=== PATIENT | male | born 1955 | race Caucasian/White ===

== ENCOUNTER → 2019-01-03 | Outpatient (CLI) | payer MEDICARE | LOC: LAB 12:47 | DX: R07.9 Chest pain, unspecified (principal) ==

== ENCOUNTER → 2019-01-06 | Outpatient (CLI) | payer MEDICARE | LOC: VAS 14:57 → CARDREHAB 14:57 → RAD 16:00 → VAS 16:00 | DX: R07.9 Chest pain, unspecified (principal); J44.9 Chronic obstructive pulmonary disease, unspecified; I10 Essential (primary) hypertension; F17.200 Nicotine dependence, unspecified, uncomplicated ==

== ENCOUNTER → 2019-02-22 | Outpatient (CLI) | payer MEDICARE ==
[2019-02-22 12:21] LABS: BASO # 0.1 (0.02-0.10); EOS # 0.2 (0.04-0.40); EOS % 3.3 % (0.0-4.0); HEMATOCRIT 47.2 % (42.0-52.0); LYMPH# 1.6 (1.50-4.00); MEAN CELL VOLUME 92 fl (78-100); MEAN CORPUSCULAR HEMOGLOBIN 31 pg (27-31); MEAN CORPUSCULAR HGB CONC 34 g/dL (33-37); MONO # 0.6 (0.20-0.80); PLATELET COUNT 164 K/mm3 (130-400); RED BLOOD COUNT 5.13 M/mm3 (4.20-5.60); RED CELL DISTRIBUTION WIDTH 12.7 % (11.5-14.5); WHITE BLOOD COUNT 5.5 K/mm3 (4.8-10.8)
[2019-02-22 12:30] LABS: ALBUMIN 4.5 g/dL (3.5-5.0); ALCOHOL IN-HOUSE < 10 mg/dL; ALT/SGPT 34 U/L (21-72); AST-SGOT 31 U/L (17-59); CALCIUM 9.5 mg/dL (8.4-10.2); CARBON DIOXIDE 28 mmol/L (22-30); GLUCOSE 106 mg/dL (75-110); LIPASE 111 U/L (23-300); POTASSIUM 4.4 mmol/L (3.6-5.0); SODIUM 133 mmol/L (137-145); TOTAL BILIRUBIN 0.9 mg/dL (0.2-1.3)
[2019-02-22 12:52] LABS: URINE APPEARANCE CLEAR; URINE BILIRUBIN NEGATIVE (NEGATIVE); URINE BLOOD NEGATIVE (NEGATIVE); URINE COLOR YELLOW; URINE GLUCOSE NEGATIVE (NEGATIVE); URINE KETONE NEGATIVE (NEGATIVE); URINE LEUKOCYTE ESTERASE 1+ (NEGATIVE); URINE NITRATE NEGATIVE (NEGATIVE); URINE PROTEIN(semi-quant) NEGATIVE (NEGATIVE); URINE UROBILINOGEN NORMAL (NORMAL)
== END ==
LOC: LAB 11:56
PROVIDERS: Nurse Practitioner Family
DX: J43.9 Emphysema, unspecified (principal); F10.239 Alcohol dependence with withdrawal, unspecified; R20.0 Anesthesia of skin; R07.9 Chest pain, unspecified; J98.4 Other disorders of lung; D73.89 Other diseases of spleen; I89.8 Other specified noninfective disorders of lymphatic vessels and lymph nodes
CPT/HCPCS: Q9967

== ENCOUNTER → 2020-01-05 | Outpatient (CLI) | payer MEDICARE | LOC: VAS 15:03 → RAD 15:15 | DX: I08.2 Rheumatic disorders of both aortic and tricuspid valves (principal); I77.810 Thoracic aortic ectasia ==

== ENCOUNTER 2020-07-31 09:00 | Outpatient (RCR) | payer MEDICARE | END 2020-07-31 09:30 | disposition still patient (30) | LOC: PT 09:00 | DX: M48.02 Spinal stenosis, cervical region (principal); M40.202 Unspecified kyphosis, cervical region; M47.812 Spondylosis without myelopathy or radiculopathy, cervical region ==

== ENCOUNTER 2020-12-13 07:38 | Emergency (ER) | payer MEDICARE ==
[2020-12-13] MEDS ORDERED: NORVASC 10MG10 MG PO (08:03)
[2020-12-13] MEDS ORDERED: LISINOPRIL40 MG PO (08:03)
[2020-12-13 08:18] LABS: BASO # 0.1 (0.02-0.10); EOS # 0.2 (0.04-0.40); EOS % 2.8 % (0.0-4.0); HEMATOCRIT 41.9 % (42.0-52.0); HEMOGLOBIN 13.7 g/dL (13.5-18.0); LYMPH# 1.7 (1.50-4.00); MEAN CELL VOLUME 94 fl (78-100); MEAN CORPUSCULAR HEMOGLOBIN 31 pg (27-31); MEAN CORPUSCULAR HGB CONC 33 g/dL (33-37); MEAN PLATELET VOLUME 9.4 fl (7.4-10.4); MONO # 0.5 (0.20-0.80); NEU # 4.6 (1.40-6.50); PLATELET COUNT 210 K/mm3 (130-400); RED BLOOD COUNT 4.44 M/mm3 (4.20-5.60); RED CELL DISTRIBUTION WIDTH 12.9 % (11.5-14.5)
[2020-12-13 08:32] LABS: POTASSIUM 4.9 mmol/L (3.5-5.1); SODIUM 136 mmol/L (136-145)
[2020-12-13 08:33] LABS: CALCIUM 8.8 mg/dL (8.3-10.5)
[2020-12-13 08:34] LABS: GLUCOSE 219 mg/dL (75-110); TOTAL PROTEIN 6.5 g/dL (6.2-8.1)
[2020-12-13 08:35] LABS: CARBON DIOXIDE 22 mmol/L (23-31)
[2020-12-13 08:36] LABS: TOTAL BILIRUBIN 0.3 mg/dL (0.2-1.2)
[2020-12-13 08:39] LABS: AST-SGOT 13 U/L (5-34)
[2020-12-13 08:40] LABS: ALT/SGPT 12 U/L (0-55)
[2020-12-13 09:05] LABS: TROPONIN-I < 0.03 ng/mL (<0.030)
[2020-12-13 12:43] VITALS: BP 127/89
== END 2020-12-13 11:43 | disposition home or self-care (01) ==
LOC: ED 07:38
PROVIDERS: Nurse Practitioner Primary Care
DX: R07.89 Other chest pain (principal); I10 Essential (primary) hypertension; Z87.891 Personal history of nicotine dependence

== ENCOUNTER → 2021-08-20 | Outpatient (CLI) | payer MEDICARE ==
[~2021-08-20] MED LIST: ASPIRIN E.C. 8181 MG; LISINOPRIL40 MG PO; NORVASC 10MG10 MG PO; TOPCARE PAIN R325 MG PO
== END ==
LOC: RAD 08:45
DX: Z13.6 Encounter for screening for cardiovascular disorders (principal); Z87.891 Personal history of nicotine dependence

== ENCOUNTER 2021-08-31 14:33 | Emergency (ER) | payer MEDICARE ==
[~2021-08-31] VITALS: Ht 182.9 cm; Wt 82.4 kg
[~2021-08-31 14:33] MED LIST changes: -ASPIRIN E.C. 8181 MG; -TOPCARE PAIN R325 MG PO
[2021-08-31] MEDS ORDERED: ASPIRIN E.C. 8181 MG (14:42)
[2021-08-31] MEDS ORDERED: TOPCARE PAIN R325 MG PO (14:43)
[2021-08-31 16:03] LABS: HEMATOCRIT 39.7 % (42.0-52.0); HEMOGLOBIN 13.2 g/dL (13.5-18.0); MEAN CELL VOLUME 93 fl (78-100); MEAN CORPUSCULAR HEMOGLOBIN 31 pg (27-31); MEAN CORPUSCULAR HGB CONC 33 g/dL (33-37); MEAN PLATELET VOLUME 8.5 fl (7.4-10.4); PLATELET COUNT 215 K/mm3 (130-400); RED BLOOD COUNT 4.29 M/mm3 (4.20-5.60); RED CELL DISTRIBUTION WIDTH 13.1 % (11.5-14.5); WHITE BLOOD COUNT 6.1 K/mm3 (4.8-10.8)
[2021-08-31 16:10] LABS: URINE APPEARANCE CLEAR; URINE BILIRUBIN NEGATIVE (NEGATIVE); URINE BLOOD NEGATIVE (NEGATIVE); URINE COLOR YELLOW; URINE GLUCOSE NEGATIVE (NEGATIVE); URINE KETONE NEGATIVE (NEGATIVE); URINE LEUKOCYTE ESTERASE NEGATIVE (NEGATIVE); URINE NITRATE NEGATIVE (NEGATIVE); URINE PROTEIN(semi-quant) TRACE mg/dL (NEGATIVE); URINE UROBILINOGEN NORMAL (NORMAL); URINE WBC 0-1 /hpf (0-3)
[2021-08-31 16:14] LABS: POTASSIUM 3.7 mmol/L (3.5-5.1)
[2021-08-31 16:15] LABS: BAND 0 % (0-10); CALCIUM 9.2 mg/dL (8.3-10.5)
[2021-08-31 16:16] LABS: LYMPHOCYTE 35 % (20-51); MONOCYTE 10 % (3-10); NEUTROPHILS 47 % (42-75); TOTAL PROTEIN 6.7 g/dL (6.2-8.1)
[2021-08-31 16:18] LABS: TOTAL BILIRUBIN 0.5 mg/dL (0.2-1.2)
[2021-08-31 17:34] VITALS: BP 124/86
== END 2021-08-31 17:40 | disposition home or self-care (01) ==
LOC: ED 14:33
PROVIDERS: Family Medicine
DX: E87.1 Hypo-osmolality and hyponatremia (principal); R10.32 Left lower quadrant pain; I10 Essential (primary) hypertension; F17.210 Nicotine dependence, cigarettes, uncomplicated; Z79.899 Other long term (current) drug therapy

== ENCOUNTER → 2021-11-14 | Outpatient (CLI) | payer MEDICARE ==
[~2021-11-14] MED LIST changes: +ASPIRIN E.C. 8181 MG; +TOPCARE PAIN R325 MG PO
== END ==
LOC: LAB 10:58
DX: R97.20 Elevated prostate specific antigen [PSA] (principal)

== ENCOUNTER 2022-02-03 10:09 | Emergency (ER) | payer MEDICARE ==
[~2022-02-03] VITALS: Ht 182.9 cm; Wt 82.2 kg
[2022-02-03 11:15] LABS: BASO # 0.04 K/mm3 (0.02-0.10); EOS # 0.31 K/mm3 (0.04-0.40); EOS % 5.2 % (0.0-4.0); HEMOGLOBIN 14.2 g/dL (13.5-18.0); MEAN CELL VOLUME 92 fl (78-100); MEAN CORPUSCULAR HEMOGLOBIN 31 pg (27-31); MEAN CORPUSCULAR HGB CONC 34 g/dL (33-37); MEAN PLATELET VOLUME 8.7 fl (7.4-10.4); MONO # 0.57 K/mm3 (0.20-0.80); NEU # 3.13 K/mm3 (1.40-6.50); PLATELET COUNT 201 K/mm3 (130-400); RED BLOOD COUNT 4.58 M/mm3 (4.20-5.60)
[2022-02-03 11:18] LABS: ALBUMIN 4.2 g/dL (3.4-4.8)
[2022-02-03 11:19] LABS: POTASSIUM 4.3 mmol/L (3.5-5.1); SODIUM 135 mmol/L (136-145)
[2022-02-03 11:20] LABS: CALCIUM 9.4 mg/dL (8.3-10.5)
[2022-02-03 11:21] LABS: GLUCOSE 109 mg/dL (75-110); TOTAL PROTEIN 6.9 g/dL (6.2-8.1)
[2022-02-03 11:22] LABS: CARBON DIOXIDE 24 mmol/L (23-31)
[2022-02-03 11:23] LABS: TOTAL BILIRUBIN 0.6 mg/dL (0.2-1.2)
[2022-02-03 11:26] LABS: AST-SGOT 17 U/L (5-34)
[2022-02-03 11:27] LABS: ALT/SGPT 11 U/L (0-55)
[2022-02-03 11:38] LABS: TROPONIN-I < 0.030 ng/mL (<0.030)
[2022-02-03] MEDS ORDERED: PREDNISONE20 M1 PO (12:03)
[2022-02-03 12:08] VITALS: BP 111/87
== END 2022-02-03 12:08 | disposition home or self-care (01) ==
LOC: ED 10:09
PROVIDERS: Nurse Practitioner
DX: E87.1 Hypo-osmolality and hyponatremia (principal); R07.81 Pleurodynia; R10.32 Left lower quadrant pain

== ENCOUNTER → 2022-02-25 | Outpatient (CLI) | payer MEDICARE ==
[~2022-02-25] MED LIST changes: +FLONASE ALLERG9.9 ML NS; +MECLIZINE PO; +PREDNISONE20 M1 PO
== END ==
LOC: VAS 09:55 → RAD 10:00
DX: I77.810 Thoracic aortic ectasia (principal)

== ENCOUNTER 2022-03-12 05:15 | Emergency (ER) | payer MEDICARE ==
[~2022-03-12] VITALS: Ht 182.9 cm; Wt 78.6 kg
[~2022-03-12 05:15] MED LIST changes: -FLONASE ALLERG9.9 ML NS; -MECLIZINE PO
[2022-03-12] MEDS ORDERED: FLONASE ALLERG9.9 ML NS (05:28)
[2022-03-12 06:27] LABS: BASO # 0.04 K/mm3 (0.02-0.10); EOS # 0.36 K/mm3 (0.04-0.40); EOS % 6.4 % (0.0-4.0); HEMATOCRIT 40.9 % (42.0-52.0); HEMOGLOBIN 13.8 g/dL (13.5-18.0); LYMPH# 2.26 K/mm3 (1.50-4.00); MEAN CELL VOLUME 91 fl (78-100); MEAN CORPUSCULAR HEMOGLOBIN 31 pg (27-31); MEAN CORPUSCULAR HGB CONC 34 g/dL (33-37); MEAN PLATELET VOLUME 8.9 fl (7.4-10.4); MONO # 0.61 K/mm3 (0.20-0.80); NEU # 2.32 K/mm3 (1.40-6.50); PLATELET COUNT 227 K/mm3 (130-400); RED BLOOD COUNT 4.48 M/mm3 (4.20-5.60); RED CELL DISTRIBUTION WIDTH 12.9 % (11.5-14.5); WHITE BLOOD COUNT 5.6 K/mm3 (4.8-10.8)
[2022-03-12 06:29] LABS: ALBUMIN 4.1 g/dL (3.4-4.8); POTASSIUM 4.1 mmol/L (3.5-5.1)
[2022-03-12 06:31] LABS: CALCIUM 8.9 mg/dL (8.3-10.5)
[2022-03-12 06:32] LABS: TOTAL PROTEIN 6.7 g/dL (6.2-8.1)
[2022-03-12 06:34] LABS: TOTAL BILIRUBIN 0.4 mg/dL (0.2-1.2)
[2022-03-12] MEDS ORDERED: MECLIZINE PO (08:00)
[2022-03-12 09:12] VITALS: BP 110/85
== END 2022-03-12 08:25 | disposition home or self-care (01) ==
LOC: ED 05:15
PROVIDERS: Family Medicine
DX: E86.0 Dehydration (principal); F17.210 Nicotine dependence, cigarettes, uncomplicated
CPT/HCPCS: J7030

== ENCOUNTER → 2022-08-26 | Outpatient (CLI) | payer MEDICARE ==
[~2022-08-26] MED LIST changes: +FLONASE ALLERG9.9 ML NS; +MECLIZINE PO
== END ==
LOC: RAD 08:36
DX: K76.9 Liver disease, unspecified (principal)
CPT/HCPCS: Q9967

== ENCOUNTER → 2022-09-03 | Outpatient (CLI) | payer MEDICARE | LOC: RAD 10:44 | DX: I77.810 Thoracic aortic ectasia (principal) ==

== ENCOUNTER 2024-07-25 09:34 | Emergency (ER) | payer MEDICARE ==
[~2024-07-25] VITALS: Ht 182.9 cm; Wt 86.4 kg
[~2024-07-25 09:34] MED LIST changes: +FLOMAX0.4 MG PO; +LUPRON DEPOT IM; +ZYRTEC10 M3 PO
[2024-07-25] MEDS ORDERED: ZESTRIL20 M1 PO (09:58)
[2024-07-25] MEDS ORDERED: ZOLOFT 50MG50 MG PO (09:59)
[2024-07-25] MEDS ORDERED: CALCIUM 600 MG-1 TAB PO (09:59)
[2024-07-25] MEDS ORDERED: ADULT ASPIRIN R81 MG PO (10:00)
[2024-07-25 10:18] LABS: BASO # 0.02 K/mm3 (0.02-0.10); EOS # 0.11 K/mm3 (0.04-0.40); HEMATOCRIT 44.4 % (42.0-52.0); HEMOGLOBIN 14.6 g/dL (13.5-18.0); LYMPH# 1.58 K/mm3 (1.50-4.00); MEAN CELL VOLUME 92 fl (78-100); MEAN CORPUSCULAR HEMOGLOBIN 30 pg (27-31); MEAN CORPUSCULAR HGB CONC 33 g/dL (33-37); MEAN PLATELET VOLUME 8.9 fl (7.4-10.4); MONO # 0.51 K/mm3 (0.20-0.80); NEU # 3.24 K/mm3 (1.40-6.50); PLATELET COUNT 192 K/mm3 (130-400); RED BLOOD COUNT 4.82 M/mm3 (4.20-5.60); RED CELL DISTRIBUTION WIDTH 14.1 % (11.5-14.5); WHITE BLOOD COUNT 5.5 K/mm3 (4.8-10.8)
[2024-07-25 10:22] VITALS: BP 123/60
[2024-07-25 10:31] LABS: ALBUMIN 4.4 g/dL (3.4-4.8)
[2024-07-25 10:32] LABS: CALCIUM 9.6 mg/dL (8.3-10.5)
[2024-07-25 10:34] LABS: TOTAL PROTEIN 7.1 g/dL (6.2-8.1)
[2024-07-25 10:35] LABS: TOTAL BILIRUBIN 0.5 mg/dL (0.2-1.2)
[2024-07-25 10:47] LABS: URINE APPEARANCE CLEAR (CLEAR); URINE COLOR YELLOW (YELLOW)
[2024-07-25 10:52] LABS: URINE BILIRUBIN NEGATIVE (NEGATIVE); URINE BLOOD NEGATIVE (NEGATIVE); URINE GLUCOSE NEGATIVE (NEGATIVE); URINE KETONE NEGATIVE (NEGATIVE); URINE LEUKOCYTE ESTERASE NEGATIVE (NEGATIVE); URINE NITRATE NEGATIVE (NEGATIVE); URINE PROTEIN(semi-quant) NEGATIVE (NEGATIVE); URINE WBC 0-1 /hpf (0-3)
== END 2024-07-25 10:30 | disposition home or self-care (01) ==
LOC: ED 09:34
PROVIDERS: Physician Assistant
DX: N50.811 Right testicular pain (principal)

== ENCOUNTER → 2024-12-05 | Day surgery (SDC) | payer MEDICARE ==
[~2024-12-05] MED LIST changes: +ADULT ASPIRIN R81 MG PO; +CALCIUM 600 MG-1 TAB PO; +TAPAZOLE 5MG TAB5 MG PO; +ZESTRIL20 M1 PO; +ZOLOFT 50MG50 MG PO; +fentaNYL 100 MCG/2 ML VIAL ONE
== END | disposition home or self-care (01) ==
LOC: MSO 11-07 08:36
DX: K92.1 Melena (principal); K64.0 First degree hemorrhoids
CPT/HCPCS: 00811; J2704; J3010; J7120

== ENCOUNTER 2025-01-31 12:48 | Emergency (ER) | payer MEDICARE ==
[~2025-01-31] VITALS: Ht 180.3 cm; Wt 84.9 kg
[~2025-01-31 12:48] MED LIST changes: -fentaNYL 100 MCG/2 ML VIAL ONE
[2025-01-31 13:20] LABS: BASO # 0.03 K/mm3 (0.02-0.10); EOS # 0.24 K/mm3 (0.04-0.40); HEMOGLOBIN 14.4 g/dL (13.5-18.0); LYMPH# 2.06 K/mm3 (1.50-4.00); MEAN CELL VOLUME 94 fl (78-100); MEAN CORPUSCULAR HEMOGLOBIN 31 pg (27-31); MEAN CORPUSCULAR HGB CONC 33 g/dL (33-37); MEAN PLATELET VOLUME 9.2 fl (7.4-10.4); MONO # 0.57 K/mm3 (0.20-0.80); NEU # 3.12 K/mm3 (1.40-6.50); PLATELET COUNT 192 K/mm3 (130-400); RED BLOOD COUNT 4.69 M/mm3 (4.20-5.60); RED CELL DISTRIBUTION WIDTH 13.4 % (11.5-14.5)
[2025-01-31 13:23] LABS: ALBUMIN 4.3 g/dL (3.4-4.8); SODIUM 135 mmol/L (136-145)
[2025-01-31 13:25] LABS: CALCIUM 9.9 mg/dL (8.3-10.5)
[2025-01-31 13:26] LABS: GLUCOSE 97 mg/dL (75-110); TOTAL PROTEIN 7.3 g/dL (6.2-8.1)
[2025-01-31 13:27] LABS: CARBON DIOXIDE 23 mmol/L (23-31)
[2025-01-31 13:28] LABS: TOTAL BILIRUBIN 0.4 mg/dL (0.2-1.2)
[2025-01-31 13:31] LABS: AST-SGOT 19 U/L (5-34)
[2025-01-31 13:32] LABS: ALT/SGPT 14 U/L (0-55)
[2025-01-31 13:39] LABS: TROPONIN-I < 0.030 ng/mL (0.00-0.033)
[2025-01-31] MEDS ORDERED: Mag/Al Hydrox/Simeth Susp 30 ML CUP PO ONE (14:15)
[2025-01-31] MEDS ORDERED: Lidocaine 2% Viscous 15 ML UNIT DOSE CUP MM ONE (14:15)
[2025-01-31 16:01] VITALS: BP 132/90
== END 2025-01-31 16:03 | disposition home or self-care (01) ==
LOC: ED 12:48
PROVIDERS: Physician Assistant
DX: R07.89 Other chest pain (principal); K30 Functional dyspepsia; I10 Essential (primary) hypertension; I49.3 Ventricular premature depolarization; Z85.46 Personal history of malignant neoplasm of prostate; Z85.820 Personal history of malignant melanoma of skin